=== PATIENT | female | born 1945 | race Hispanic/Latino ===

== ENCOUNTER → 2017-04-05 | Outpatient (CLI) | payer MEDICARE, OTHER ==
[~2017-04-05] MED LIST: ALBU18HF7 IH; CYCL10TA7 PO; DEXL60CA3 PO; FLUT16H NASAL; LABE100T PO; LOSA50TA37 PO; METF500T6 PO; MONT10TA24 PO; PRAV40TA3 PO; XALA2.5OS OU
== END ==
LOC: OIH 13:25
PROVIDERS: ATTEND Internal Medicine Cardiovascular Disease
DX: Z13.6 Encounter for screening for cardiovascular disorders (principal)
CPT/HCPCS: 75571

== ENCOUNTER 2018-08-28 18:29 | Inpatient (IN) | payer MEDICARE ==
[~2018-08-28] VITALS: Ht 152.4 cm; Wt 96.8 kg
[~2018-08-28 18:29] MED LIST changes: -LABE100T PO; +LABE100T5 PO; -LOSA50TA37 PO; +LOSA50TA64 PO; +METF-444 PO; -METF500T6 PO
[2018-08-28 20:49] LABS: APPEARANCE,URINE Clear (CLEAR); BILIRUBIN,URINE Negative (NEGATIVE); COLOR,URINE Yellow (YELLOW); GLUCOSE, URINE (UA) Negative (NEGATIVE); KETONES,URINE Negative (NEGATIVE); LEUKOCYTE ESTERASE ,URINE Negative (NEGATIVE); NITRATE,URINE Negative (NEGATIVE); OCCULT BLOOD,URINE Negative (NEGATIVE); PROTEIN,URINE Negative (NEGATIVE)
[2018-08-28 21:17] LABS: BASOPHILS % (AUTO) 0.9 % (0.0-5.0); HEMATOCRIT 47.2 % (36-48); LYMPHOCYTES % (AUTO) 23.8 % (21.0-51.0); MEAN CORPUSCULAR HGB CONC 32.8 g/dL (32.0-36.0); MEAN CORPUSCULAR VOLUME 97.7 fL (79-99); MONOCYTES % (AUTO) 8.5 % (3.0-13.0); NEUTROPHILS % (AUTO) 63.8 % (40.0-77.0); PLATELET COUNT (AUTO) 289 K/uL (130-400); RED BLOOD CELL COUNT(AUTO) 4.83 MIL/uL (4.00-5.50); RED CELL DISTRIBUTION WIDTH 13.6 % (11.0-15.5); WHITE BLOOD COUNT (AUTO) 8.9 K/uL (4.8-10.8)
[2018-08-28 21:28] LABS: CREATININE 1.3 mg/dL (0.5-1.5); POTASSIUM 4.5 mmol/L (3.5-5.1)
[2018-08-28 21:30] LABS: INR 1.06 (0.85-1.15); PARTIAL THROMBOPLASTIN TIME 29.6 SEC (26.3-35.5); PROTHROMBIN TIME 11.1 SEC (9.6-11.6)
[2018-08-28 21:32] LABS: ALBUMIN 4.1 g/dL (3.5-5.0); BILIRUBIN,TOTAL 0.5 mg/dL (0.2-1.0); MAGNESIUM 2.1 mg/dL (1.80-2.40); TOTAL PROTEIN, SERUM 7.8 g/dL (6.0-8.3)
[2018-08-28 21:45] LABS: B-TYPE NATRIURETIC PEPTIDE 113 pg/mL (0-100)
[2018-08-28] MEDS ORDERED: ACETAMINOPHEN 325 MG TAB ONE (23:42)
[2018-08-29] MEDS ORDERED: APIXABAN 2.5 MG TABLET PO ONE (11:10)
[2018-08-29] MEDS ORDERED: AMIODARONE HCL 200 MG TABLET PO ONE (11:10)
[2018-08-29] MEDS: FLECAINIDE ACETATE 100 MG TABLET PO SCH ×2 (11:10→20:36)
[2018-08-29] MEDS ORDERED: METOPROLOL TARTRATE 25 MG TAB ONE (11:11)
[2018-08-29] MEDS ORDERED: LOSARTAN 50 MG TABLET ONE (11:11)
[2018-08-29] MEDS ORDERED: IOHEXOL 350 MG/ML 100ML INFUS..BTL IV ONE (11:15)
[2018-08-29] MEDS ORDERED: ACETAMINOPHEN 325 MG TAB ONE (15:30)
[2018-08-29 16:43] VITALS: BP 161/103
[2018-08-29] MEDS ORDERED: SODIUM CHLORIDE 0.9% 1000ML 1,000 ML IV ONE (17:08)
[2018-08-29] MEDS ORDERED: LOSA100T58 PO (18:32)
[2018-08-29] MEDS ORDERED: GABA-531 PO (18:32)
[2018-08-29] MEDS ORDERED: TRAV2.5D OD (18:32)
[2018-08-29] MEDS ORDERED: FLEC100T3 PO (18:32)
[2018-08-29] MEDS ORDERED: AMIO200T5 PO (18:32)
[2018-08-29] MEDS ORDERED: APIX5TAB PO (18:32)
[2018-08-29] MEDS ORDERED: METO25TA6 PO (18:52)
[2018-08-29] MEDS ORDERED: MELO-106 PO (18:52)
[2018-08-29] MEDS ORDERED: OMEP-50 PO (18:52)
--- NOTE | 2018-08-29 19:00 | NUR ---
Received report pt was supposed to have bedside cardioversion for some reasons pt converted to Sinus rhythm and Dr. Inman spoke to the pt.No new order received.
[2018-08-29] MEDS ORDERED: ESCI20TA36 PO (19:42)
[2018-08-29 20:01] VITALS: BP 172/75
[2018-08-29] MEDS: SODIUM CHLORIDE 0.9% 1000ML 1,000 ML IV SCH (20:37)
[2018-08-30] VITALS (14 sets, daily range): BP systolic 128–161; BP diastolic 40–100
[2018-08-30] MEDS ORDERED: ACETAMINOPHEN 325 MG TAB ONE (00:21)
--- NOTE | 2018-08-30 00:25 | NUR ---
Instructed pt to be NPO at this time for a possible cardiac catheterization in am.[employer] notified.
[2018-08-30] MEDS ORDERED: HYDRALAZINE HCL 20 MG/ML VIAL IV PRN (00:30)
[2018-08-30 03:56] LABS: POTASSIUM 4.5 mmol/L (3.5-5.1)
--- NOTE | 2018-08-30 07:40 | NUR ---
Pt. remained NPO ,report given to incoming NOD using SBAR all questions answered.
[2018-08-30] MEDS ORDERED: SODIUM CHLORIDE 0.9% 500ML 500 ML IV SCH (07:59)
[2018-08-30] MEDS: FLECAINIDE ACETATE 100 MG TABLET PO SCH ×3 (09:00→20:34)
--- NOTE | 2018-08-30 10:00 | NUR ---
AM ASSESSMENT PT SITTING IN CHAIR, WATCHING TV. A/O X 3. SPA SPEAKING ONLY. NO SOB. NO DISTRESS NOTED. DENIES CHEST PAIN OR DISCOMFORT. DENIES PALPITATIONS. DENIES N/V AND/OR DIARRHEA. NPO STATUS REINFORCED. 0.9% NACL INFUSING @ 50 ML/HR. PT TO HAVE C TODAY BY DR JOHNSON. UP AD JAYDEN. INSTRUCTED TO CALL FOR ASSISTANCE. CALL LE W/IN REACH.
[2018-08-30] MEDS: SODIUM CHLORIDE 0.9% 1000ML 1,000 ML IV SCH (11:45)
[2018-08-30] MEDS ORDERED: VERAPAMIL HCL 2.5 MG/ML VIAL ONE (13:39)
[2018-08-30] MEDS ORDERED: IOHEXOL-350 50ML VIAL IV ONE ×2 (13:40→14:32)
[2018-08-30] MEDS ORDERED: NITROGLYCERIN 5 MG/ML 10 ML VIAL IV ONE (13:40)
[2018-08-30] MEDS ORDERED: IOHEXOL 350 MG/ML 100ML INFUS..BTL IV ONE ×2 (13:40→14:32)
[2018-08-30] MEDS ORDERED: HEPARIN SODIUM 1000UNIT/ML 10ML VIAL ONE (13:40)
[2018-08-30] MEDS ORDERED: LIDOCAINE HCL 2% 20ML ONE (13:40)
[2018-08-30] MEDS ORDERED: FENTANYL CITRATE PF 50 MCG/1 ML 2ML VIAL ONE (14:20)
[2018-08-30] MEDS ORDERED: MIDAZOLAM HCL 1 MG/ML 2ML VIAL ONE (14:20)
[2018-08-30] MEDS ORDERED: BIVALIRUDIN 250 MG/VIAL IV ONE (14:28)
[2018-08-30] MEDS ORDERED: SODIUM CHLORIDE 0.9% 1000ML 1,000 ML IV SCH (15:04)
[2018-08-30] MEDS ORDERED: FUROSEMIDE 10 MG/ML 2ML VIAL IV SCH (15:42)
[2018-08-30] MEDS: ACETAMINOPHEN 325 MG TAB PO PRN (20:38)
[2018-08-31 04:18] LABS: BASOPHILS % (AUTO) 1.2 % (0.0-5.0); EOSINOPHILS % (AUTO) 4.4 % (0.0-8.0); HEMATOCRIT 41.9 % (36-48); LYMPHOCYTES % (AUTO) 30.5 % (21.0-51.0); MEAN CORPUSCULAR HGB CONC 33.2 g/dL (32.0-36.0); MEAN CORPUSCULAR VOLUME 99.3 fL (79-99); MONOCYTES % (AUTO) 8.9 % (3.0-13.0); NUCLEATED RED BLOOD CELLS 0.2 % (0.0-0.19); PLATELET COUNT (AUTO) 223 K/uL (130-400); RED BLOOD CELL COUNT(AUTO) 4.22 MIL/uL (4.00-5.50); RED CELL DISTRIBUTION WIDTH 13.6 % (11.0-15.5); WHITE BLOOD COUNT (AUTO) 4.9 K/uL (4.8-10.8)
[2018-08-31 04:26] LABS: CREATININE 0.9 mg/dL (0.5-1.5); POTASSIUM 4.4 mmol/L (3.5-5.1)
[2018-08-31 04:30] VITALS: BP 174/79
[2018-08-31 04:39] LABS: B-TYPE NATRIURETIC PEPTIDE 60 pg/mL (0-100)
[2018-08-31] MEDS: SODIUM CHLORIDE 0.9% 1000ML 1,000 ML IV SCH (05:26)
[2018-08-31] MEDS: ACETAMINOPHEN 325 MG TAB PO PRN ×2 (06:31→14:41)
[2018-08-31 07:23] VITALS: BP 137/68
[2018-08-31] MEDS: FLECAINIDE ACETATE 100 MG TABLET PO SCH (08:50)
[2018-08-31] MEDS ORDERED: ONDANSETRON HCL 4 MG/2 ML VIAL IVP PRN (09:00)
[2018-08-31] MEDS ORDERED: APIXABAN 5 MG TABLET PO SCH (09:00)
[2018-08-31 11:15] VITALS: BP 114/63
--- NOTE | 2018-08-31 13:02 | NUR ---
DC PLAN VISITED WITH PATIENT. PATIENT LIVES WITH SPOUSE. SEMI INDEPENDENT PROVIDER 2 HRS. NO DME FEELS SAFE TO RETURN HOME. Addendum: 08/31/18 at 1304 by YARED MEJIA RN CM Amended: Links added.
[2018-08-31 15:38] VITALS: BP 142/66
== END 2018-08-31 18:00 | disposition home or self-care (01) | DRG 281 ==
LOC: EDH 18:29 → EDHIP 18:30 → 2AH 08-29 16:23
PROVIDERS: ADMIT Internal Medicine; ATTEND Internal Medicine
PROC: B2151ZZ Fluoroscopy of Left Heart using Low Osmolar Contrast (ICD-10-PCS; principal; 2018-08-30)
PROC: B2111ZZ Fluoroscopy of Multiple Coronary Arteries using Low Osmolar Contrast (ICD-10-PCS; 2018-08-30)
PROC: 4A023N7 Measurement of Cardiac Sampling and Pressure, Left Heart, Percutaneous Approach (ICD-10-PCS; 2018-08-30)
DX: I21.9 Acute myocardial infarction, unspecified (principal); I48.92 Unspecified atrial flutter; I50.30 Unspecified diastolic (congestive) heart failure; I45.89 Other specified conduction disorders; E11.9 Type 2 diabetes mellitus without complications; E78.2 Mixed hyperlipidemia; I11.0 Hypertensive heart disease with heart failure; I48.0 Paroxysmal atrial fibrillation; Z96.653 Presence of artificial knee joint, bilateral; Z79.01 Long term (current) use of anticoagulants; Z82.49 Family history of ischemic heart disease and other diseases of the circulatory system; Z83.3 Family history of diabetes mellitus; Z90.710 Acquired absence of both cervix and uterus; Z90.49 Acquired absence of other specified parts of digestive tract; Z79.899 Other long term (current) drug therapy; Z79.84 Long term (current) use of oral hypoglycemic drugs
CPT/HCPCS: 36415; 71045; 71275; 80048; 80053; 81003; 83735; 83880; 85025; 85610; 85730; 93005; 93306; 93458; 99156; 99157; C1769; G0378; J0360; J0583; J1644; J1940; J2250; J2405; J3010; J3490; J7030; Q9967

== ENCOUNTER → 2018-11-23 | Outpatient (CLI) | payer MEDICARE ==
[~2018-11-23] MED LIST changes: +AMIO200T5 PO; +APIX5TAB PO; +BRIM5DRO2 OU; -CYCL10TA7 PO; -DEXL60CA3 PO; +ESCI20TA36 PO; +FLEC100T3 PO; +GABA-531 PO; +IOHEXOL 350 MG/ML 100ML INFUS..BTL IV ONE; -LABE100T5 PO; +LOSA100T58 PO; -LOSA50TA64 PO; +MELO-106 PO; +METO25TA6 PO; +OLOP5DRO14 OU; +OMEP-50 PO; +TRAV2.5D OU
[2018-11-29 07:39] VITALS: BP 150/76
--- NOTE | 2018-11-29 08:15 | NUR ---
POTENTIAL FOR INFECTION: SHAVED ENTIRE ABDOMEN, BILATERAL GROIN AREA, PERINEAL AND BILATERAL UPPER LEGS PER TROY EDGAR RN FOLLOWED BY WIPING WITH JOSE: 2% CHLORHEXIDINE GLUCONATE CLOTH PATIENTS PRE-OP SKIN PREP.
== END | disposition home or self-care (01) ==
LOC: RAH 07:30
PROVIDERS: ATTEND Internal Medicine Cardiovascular Disease
DX: I48.3 Typical atrial flutter (principal); I48.0 Paroxysmal atrial fibrillation; Z90.49 Acquired absence of other specified parts of digestive tract; M51.35 Other intervertebral disc degeneration, thoracolumbar region; I51.7 Cardiomegaly
CPT/HCPCS: 71275; Q9967

== ENCOUNTER → 2018-12-19 | Outpatient (CLI) | payer MEDICARE ==
[~2018-12-19] MED LIST changes: -ALBU18HF7 IH; -FLEC100T3 PO; -IOHEXOL 350 MG/ML 100ML INFUS..BTL IV ONE; -XALA2.5OS OU
== END | disposition home or self-care (01) ==
LOC: RAH 10:42
PROVIDERS: ATTEND Internal Medicine Cardiovascular Disease
DX: S30.1XXA Contusion of abdominal wall, initial encounter (principal); X58.XXXA Exposure to other specified factors, initial encounter; Y93.89 Activity, other specified; Y92.89 Other specified places as the place of occurrence of the external cause; Y99.8 Other external cause status; Z95.818 Presence of other cardiac implants and grafts
CPT/HCPCS: 76882

== ENCOUNTER → 2018-12-20 | Outpatient (CLI) | payer MEDICARE | END | disposition home or self-care (01) | LOC: RAH 09:18 | PROVIDERS: ATTEND Internal Medicine Cardiovascular Disease | DX: R10.31 Right lower quadrant pain (principal); I72.9 Aneurysm of unspecified site | CPT/HCPCS: 76700 ==

== ENCOUNTER → 2021-08-04 | Outpatient (CLI) | payer MEDICARE ==
[~2021-08-04] MED LIST changes: +ALBUTEROL 0.083% 2.5 MG/3 ML INH IH ONE; -AMIO200T5 PO; +AMIO200T68 PO; -ESCI20TA36 PO; +ESCI20TA38 PO; +MONT-39 PO; -MONT10TA24 PO; -OLOP5DRO14 OU; +OLOP5DRO26 OU; -OMEP-50 PO; +OMEP20CA12 PO
== END | disposition home or self-care (01) ==
LOC: RESP 08:36
PROVIDERS: ATTEND Internal Medicine Cardiovascular Disease
DX: R06.00 Dyspnea, unspecified (principal); R53.83 Other fatigue
CPT/HCPCS: 94060; 94727; 94729

== ENCOUNTER → 2021-12-01 | Outpatient (CLI) | payer MEDICARE | END | disposition home or self-care (01) | LOC: RESP 10:08 | PROVIDERS: ATTEND Internal Medicine Cardiovascular Disease | DX: R06.02 Shortness of breath (principal); J45.909 Unspecified asthma, uncomplicated; Z86.16 Personal history of COVID-19 | CPT/HCPCS: 94060; 94727; 94729 ==